=== PATIENT | male | born 1995 | race Caucasian/White ===

== ENCOUNTER 2019-01-02 23:19 | Emergency (ER) | payer SELFPAY ==
[2019-01-02 23:29] VITALS: BP 153/79; PULSE 85; TEMP 97.9; BMI 26.5
--- NOTE | 2019-01-03 00:58 | PDOC ---
History of Present Illness - General Chief Complaint: Laceration Stated Complaint: LACERATION LEFT FOREARM Time Seen by Provider: 01/02/19 23:23 - History of Present Illness Initial Comments: This otherwise healthy 23-year-old man presents with a laceration of the left forearm. Patient states just prior to presentation, as he was attempting to put together a portable grill, the claw hammer he was using slipped. The claw portion of the hammer lacerated his left forearm. No other injury sustained. Patient reports mild pain in the laceration; he notes numbness in the tips of his second third and fourth left fingers. Patient is unaware of his most recent tetanus immunization booster No history of poor wound healing or resistant organism colonization/infection No history of smoking/daily alcohol use or other recreational drug use No known ALLERGIES No daily medications Past History - Past Medical History Allergies/Adverse Reactions: Allergies Allergy/AdvReac Type Severity Reaction Status Date / Time No Known Allergies Allergy Verified 01/02/19 23:20 Home Medications: Ambulatory Orders NK [No Known Home Medication] 01/02/19 COPD: No - Immunization History Immunization Up to Date: Yes - Suicide/Smoking/Psychosocial Hx Smoking History: Current some day smoker Have you smoked in the past 12 months: Yes Number of Cigarettes Smoked Daily: 3 Information on smoking cessation initiated: Yes Hx Alcohol Use: Yes (WEEK ENDS) Drug/Substance Use Hx: No Review of Systems - Review of Systems Able to Perform ROS?: Yes Comments:: 12 point review of systems is negative except for what is noted in the history of present illness *Physical Exam - Vital Signs Last Vital Signs Temp Pulse Resp BP Pulse Ox 97.9 F 85 15 153/79 98 01/02/19 23:22 01/02/19 23:22 01/02/19 23:22 01/02/19 23:22 01/02/19 23:22 - Physical Exam Comments: GENERAL: Adult male, alert and oriented 3, no acute distress HEAD: Normal with no signs of trauma. EYES: PERRLA, EOMI, sclera anicteric, conjunctiva clear. EXTREMITIES: -Left upper extremity-3 cm full-thickness linear laceration of the volar aspect of the distal forearm No deficit of sensory functioning distally; 4/5 strength of third finger, otherwise 5/5 strength of fingers Otherwise, extremity exam is normal NEUROLOGICAL: Cranial nerves II through XII grossly intact. Normal speech. No focal neurological deficits. MUSCULOSKELETAL: Back non-tender to palpation, no CVA tenderness Procedures - Laceration/Wound Repair Left Distal Volar Arm Wound Length: 2.6 to 5.0 cm Wound Explored: clean Wound's Depth, Shape: linear Irrigated w/ Saline: Yes Betadine Prep: No (Hibiclens/ethanol) Anesthesia: 1% Lidocaine Amount of Anesthetic (ccs): 2 Wound Debrided: minimal Wound Repaired With: Sutures Suture Size/Type: 4:0 Number of Sutures: 5 Layer Closure: No Sterile Dressing Applied: Yes Splint Applied: No Progress: Area around left forearm laceration cleansed using Hibiclens/ethanol solution. 2 mL of 1% lidocaine infiltrated into the soft tissue for local anesthesia. Wound thoroughly irrigated using sterile normal saline (50 mL). Wound explored : No evidence of neurovascular injury. No tendon disruption seen. Wound edges carefully approximated and wound closed using 5 interrupted sutures of 4-0 nylon. Bacitracin and sterile gauze bandage applied. Patient tolerated procedure well Progress Note - Progress Note Progress Note: This 23-year-old man, otherwise healthy without history of poor wound healing or immunocompromise presents with laceration of the left forearm, sustained when the claw hammer he was using slipped and forearm was injured.. Repair of laceration performed as noted above Other than the wound itself, exam notable for minimal but reproducible weakness of flexion in his left third finger. No previous decrease of strength present in this finger and patient has had no history of direct injury to the third finger. 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 Wound should be kept open at night. He should return here or see his doctor if there signs of infection in the wound. Sutures should be removed on Friday, January 13. *DC/Admit/Observation/Transfer Diagnosis at time of Disposition: Laceration of left upper extremity Qualifiers: Encounter type: initial encounter Qualified Code(s): S41.112A - Laceration without foreign body of left upper arm, initial encounter - Discharge Dispostion Disposition: HOME Condition at time of disposition: Stable - Referrals - Patient Instructions Printed Discharge Instructions: How to Care for a Laceration After Repair Additional Instructions: Keep original dressing in place, as dry as possible, for 2 days After 2 days, Band-Aid during day/open at night Bacitracin or Neosporin ointment twice a day to wound Return to ER or see your doctor if area is red/swollen/painful Follow-up with hand surgeon(Sanjeev Lo/Britni)if you have persistent numbness or weakness of hand Have sutures removed on Friday, have sutures removed January 13 - Post Discharge Activity
[2019-01-03] MEDS ORDERED: DIPHTH,PERTUSS(ACELL),TET 0.5 ML DISP.SYRIN IM ONE (01:33)
== END 2019-01-03 01:52 | disposition home or self-care (01) ==
LOC: FER 23:19
PROC: 0HQGXZZ Repair Left Hand Skin, External Approach (ICD-10-PCS; principal; 2019-01-02)
DX: S41.112A Laceration without foreign body of left upper arm, initial encounter (principal); W45.8XXA Other foreign body or object entering through skin, initial encounter; Y93.89 Activity, other specified; Y92.89 Other specified places as the place of occurrence of the external cause
CPT/HCPCS: 99281-25